=== PATIENT | female | born 1985 | race African-American/Black ===

== ENCOUNTER 2019-06-24 06:51 | Day surgery (SDC) | payer OTHER ==
[~2019-06-24] VITALS: Ht 165.1 cm; Wt 84.0 kg
[~2019-06-24 06:51] MED LIST: BUPIVACAINE-EPI 0.25%-1:200000 MPF 30 ML VIAL. INJ ONE; CHOL10003 PO; FERR325T14 PO; METH36TA5 PO; OMEP20TA8 PO
[2019-06-24] MEDS ORDERED: LIDOCAINE 1% PF 2 ML VIAL. ID PRN (07:00)
[2019-06-24] MEDS ORDERED: IV RINGERS,LACTATED 1000ML 1,000 ML IV SCH (07:00)
[2019-06-24] MEDS ORDERED: PROCHLORPERAZINE 10 MG/2 ML VIAL. IV PRN (07:00)
[2019-06-24] MEDS ORDERED: HYDROmorphone 2 MG/ML VIAL IV PRN (07:00)
[2019-06-24] MEDS ORDERED: MORPHINE SULFATE 2 MG/ML VIAL. IV PRN (07:00)
[2019-06-24] MEDS ORDERED: fentaNYL PF VIAL 100 MCG/2 ML VIAL IV PRN (07:00)
[2019-06-24] MEDS ORDERED: ONDANSETRON PF 4 MG/2 ML VIAL. IV PRN (07:00)
[2019-06-24] MEDS ORDERED: ONDANSETRON PF 4 MG/2 ML VIAL. ONE (07:21)
[2019-06-24] MEDS ORDERED: PROPOFOL 20 ML IV ONE ×2 (07:21→08:11)
[2019-06-24] MEDS ORDERED: LIDOCAINE 2% PF 5 ML VIAL. ONE (07:21)
[2019-06-24] MEDS ORDERED: DEXAMETHASONE SOD PHOS 4 MG/ML VIAL ONE (07:21)
[2019-06-24] MEDS ORDERED: ACETAMINOPHEN 500 MG TABLET PO ONE ×2 (07:48→08:15)
[2019-06-24] MEDS ORDERED: KETOROLAC 30 MG/ML VIAL. ONE (08:14)
[2019-06-24] MEDS ORDERED: SEVOFLURANE 31 TO 60 MINUTES. IH ONE (08:14)
[2019-06-24] MEDS ORDERED: fentaNYL PF VIAL 100 MCG/2 ML VIAL ONE ×3 (08:23→10:06)
[2019-06-24] MEDS ORDERED: NEOMY/BACITR/POLYMYXIN OINT PACKET. TP ONE (08:27)
--- NOTE | 2019-06-24 08:32 | PDOC4 ---
Operative Note Operative Note Date: 06/24/2019 Preoperative diagnosis: Internal/external hemorrhoids Postoperative diagnosis: Same Procedure: Hemorrhoidectomy Surgeon: Davon Dictation: Patient is a 34-year-old female is complained of external hemorrhoids as well as internal hemorrhoids previously having had hemorrhoidectomy several years ago is now having difficulties with hemorrhoids and pain and bleeding. Procedure of hemorrhoidectomy was explained to the patient detail risk benefits were also discussed including bleeding infection alternatives to this procedure also discussed with the patient seemed to understand gave both verbal and written consent to have the procedure performed. Patient was taken to the operating room real anesthesia was initiated once patient was sleep and intubated she was placed in lithotomy positioning and her peritoneum was prepped and draped usual sterile fashion is Betadine scrub and solution. Area around the hemorrhoids were injected with quarter percent Marcaine with epinephrine hemorrhoids were grasped with Allis clamp and excised using the Harmonic scalpel. Wounds were then dressed with antibiotic ointment 4 x 4's and mesh panties. Patient was taken out of lithotomy in the supine position she was awakened and asked bated operating room taken to recovery in stable condition all sponge instrument needle counts listed as correct estimate blood loss 5 mL. KAILYN BERRY MD Jun 24, 2019 08:32
--- NOTE | 2019-06-24 08:34 | DISCH ---
DISCHARGE INSTRUCTIONS Condition on Discharge Condition on Discharge: Stable Activity After Discharge Activity Instructions for Disc: Avoid exertion Diet after Discharge Diet after Discharge: Regular Wound Incision Care Other wound/incision instructi: May shower in 24 hours Contacting the after DC Call your doctor for: If your condition worsens Follow-Up Follow up with: Dr. Berry in 2 weeks KAILYN BERRY MD Jun 24, 2019 08:34
[2019-06-24] MEDS: fentaNYL PF VIAL 100 MCG/2 ML VIAL IV PRN ×2 (08:56→10:14)
[2019-06-24] MEDS ORDERED: ceFAZolin 2GM PREMIX 2 GM/50 ML BAG IV ONE (09:00)
[2019-06-24 09:15] VITALS: BP 124/87
[2019-06-24] MEDS ORDERED: traMADol 50 MG TABLET ONE (10:10)
[2019-06-24] MEDS ORDERED: GABAPENTIN 300 MG CAPSULE. PO ONE (10:15)
[2019-06-24] MEDS ORDERED: traMADol 50 MG TABLET PO ONE (10:30)
--- NOTE | 2019-06-27 15:07 | PATHOLOGY ---
[facility] Accession Number: [id number] . 01 Material submitted: . hemorrhoids - HEMORRHOIDS . 01 Clinical history: . Hemorrhoids . 02 Diagnosis: "Hemorrhoids", hemorrhoidectomy: - Hemorrhoids. (SKM:davonte; 06/27/2019) QMS 06/27/2019 1202 Local . 02 Electronically signed: . Reyes Cantrell MD, Pathologist NPI- [id number] . 01 Gross description: . Received in formalin labeled "Graddy, Leighanni, hemorrhoids," are 3 segments of hanna-pink epithelial covered tissue ranging from 2.0 x 0.9 x 0.9 to 2.4 x 1.2 x 0.9 cm in maximum dimensions. The epithelial surfaces appear intact, without grossly apparent lesions. On cut section, the subepithelial tissue has a highly vascular appearance. Director Sales tissue is submitted in cassettes A1-A2. (TSD; 06/24/2019) TOB/TOB 06/24/2019 1737 Local . 02 Pathologist provided ICD-10: K64.9 . 02 CPT . 383680 Specimen Comment: A courtesy copy of this report has been sent to Specimen Comment: [phone], . Specimen Comment: Report sent to / DR ALANIZ Performed at: 01 [facility] [address], [place] [id number] MD Enrico Fleming MD Phone: [phone] Performed at: 02 [facility] [address] [place], [place] [id number] MD Gabriel Ibarra MD Phone: [phone]
== END 2019-06-24 10:30 | disposition home or self-care (01) ==
LOC: SURG 06:51
PROVIDERS: ATTEND Surgery
DX: K64.8 Other hemorrhoids (principal); K64.9 Unspecified hemorrhoids; F41.9 Anxiety disorder, unspecified; Z87.891 Personal history of nicotine dependence
CPT/HCPCS: 46255; 81025; 88304; A7015; J0696; J1100; J1885; J2001; J2405; J2704; J3010; A4461